=== PATIENT | male | born 1995 | race Caucasian/White ===

== ENCOUNTER → 2021-07-27 | Outpatient (REF) | LOC: M LABSMTC 13:43 | PROVIDERS: ATTEND Pediatrics | DX: Z20.822 Contact with and (suspected) exposure to COVID-19 (principal) ==

== ENCOUNTER → 2021-08-24 | Outpatient (REF) | LOC: M LABSMTC 10:47 | PROVIDERS: ATTEND Pediatrics | DX: Z20.822 Contact with and (suspected) exposure to COVID-19 (principal) ==

== ENCOUNTER 2021-12-21 06:51 | Day surgery (SDC) | payer OTHER ==
[~2021-12-21] VITALS: Ht 177.8 cm; Wt 89.7 kg
[~2021-12-21 06:51] MED LIST: ACET-910 PO; IBUP80TA PO; LR 1,000 ML IV ONE
[2021-12-21] MEDS ORDERED: MULT-40 PO (07:16)
[2021-12-21] MEDS ORDERED: fentaNYL 100 MCG/2 ML INJECTION As Ordered ONE (07:52)
[2021-12-21] MEDS ORDERED: LIDOCAINE 2% 100MG/5ML SDV (FOR ANES.) As Ordered ONE (07:52)
[2021-12-21] MEDS ORDERED: propofoL 200 MG/20 ML VIAL As Ordered ONE (07:52)
[2021-12-21] MEDS ORDERED: KETOROLAC 60MG 2ML VIAL As Ordered ONE (07:52)
[2021-12-21] MEDS ORDERED: METOCLOPRAMIDE INJ 10MG/2ML VIAL (J2765 PER 1) As Ordered ONE (07:52)
[2021-12-21] MEDS ORDERED: MIDAZOLAM INJ 2MG/2ML VIAL (J2250 PER 1MG) As Ordered ONE (07:52)
[2021-12-21] MEDS ORDERED: ONDANSETRON 4MG/2ML VIAL As Ordered ONE (07:52)
[2021-12-21] MEDS ORDERED: dexameTHASONE 4 MG/ML 1ML VIAL (J1100 PER 1MG) As Ordered ONE (07:52)
[2021-12-21] MEDS ORDERED: CIPRODEX OTIC SUSP 7.5ML As Ordered ONE (07:54)
[2021-12-21] MEDS ORDERED: METHYLENE BLUE 0.5% (5MG/ML) 10 ML AMP (PROVAYBLUE) As Ordered ONE (07:54)
[2021-12-21] MEDS ORDERED: EPINEPHrine 1MG/ML INJ 30ML MD-VIAL As Ordered ONE (07:54)
[2021-12-21] MEDS ORDERED: LIDOCAINE W/EPINEPHRINE 1% 20ML VIAL As Ordered ONE (07:54)
[2021-12-21] MEDS ORDERED: BACITRACIN OINTMENT 30GM TUBE TOP SCH (09:00)
[2021-12-21] MEDS ORDERED: BACITRACIN OINTMENT 30GM TUBE As Ordered ONE (10:15)
[2021-12-21] MEDS ORDERED: fentaNYL 100 MCG/2 ML INJECTION IV PRN (10:50)
[2021-12-21] MEDS ORDERED: oxyCODONE 5MG TAB PO PRN (10:50)
[2021-12-21] MEDS ORDERED: ONDANSETRON 4MG/2ML VIAL IV PRN (10:50)
[2021-12-21] MEDS ORDERED: MEPERIDINE INJ 25 MG/ML VIAL (J2175) IV PRN (10:50)
[2021-12-21] MEDS ORDERED: LR 1,000 ML IV SCH ×2 (10:50→11:00)
[2021-12-21] MEDS ORDERED: ANEXSIA, NORCO 7.5MG/325MG TABLET(HYDROCODONE/APAP) PO PRN (11:00)
[2021-12-21 12:00] VITALS: BP 139/85
== END 2021-12-21 12:05 | disposition home or self-care (01) ==
LOC: M SDC 06:51 → MERGE 08:15 → M SDC 12:05
PROVIDERS: ATTEND Otolaryngology
DX: H72.91 Unspecified perforation of tympanic membrane, right ear (principal)
CPT/HCPCS: 15769; 69636; J0171; J1100; J1885; J2250; J2405; J2765; J3010; Q9968